=== PATIENT | female | born 1995 | race Caucasian/White ===

== ENCOUNTER 2017-03-04 15:09 | Emergency (ER) | payer OTHER, BC ==
[2017-03-04 15:31] VITALS: BP 110/76
--- NOTE | 2017-03-04 15:39 | EDM.PDOC ---
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 She was irrigating a bloody jack cath and the syringe slipped and she got it in the left eye. She rinsed out her eye and notified her supervisor [employer]. She is . Timing/Duration: Reports: Minutes: Location: left eye Quality: Reports: Other (Bloody urine her her left eye) Severity: moderate Improves with: Reports: None Worsens with: Reports: None Context: Reports: other (bloody urine) Associated Symptoms (Eye): Reports: decreased/blurred (blurry vison at first) - Related Data Allergies/ADRs: Allergies amoxicillin Allergy (Verified 05/03/16 10:14) Hives ceftriaxone sodium [From Rocephin] Allergy (Verified 05/03/16 10:14) Airway Tightness Home Meds: Ambulatory Orders Medication Instructions Recorded Confirmed [place]-3 Fatty Acids [Fish Oil] 1,200 mg PO DAILY 03/04/17 03/04/17 PNV95/Ferrous Fumarate/FA 1 tab PO DAILY 03/04/17 03/04/17 [ Tablet] Tobramycin 0.3% [Tobramycin 0.3% 5 ml EYELF Q4H #1 bottle 03/04/17 Ophth Mayra] Past Medical History - Past Surgical History HEENT Surgical History: Reports: Oral surgery GI Surgical History: Reports: Appendectomy Social & Family History - Tobacco Use Smoking Status *Q: Never Smoker - Caffeine Use Caffeine Use: Reports: None - Alcohol Use Days Per Week of Alcohol Use: 2 Number of Drinks Per Day: 5 Total Drinks Per Week: 10 - Recreational Drug Use Recreational Drug Use: No - Living Situation & Occupation Living situation: Reports: single Occupation: employed ED ROS GENERAL - Review of Systems Review Of Systems: See Below Constitutional: Reports: no symptoms HEENT: Reports: Other (Bloody urine in her eye) Respiratory: Reports: No Symptoms Cardiovascular: Reports: No symptoms Endocrine: Reports: no symptoms GI/Abdominal: Reports: No symptoms : Reports: no symptoms Musculoskeletal: Reports: no symptoms ED EXAM GENERAL W FULL EYE - Physical Exam Exam: See Below Exam Limited By: No limitations General Appearance: alert, no apparent distress Eye Exam: bilateral eye: EOMI, PERRL Course - Vital Signs Last Recorded V/S: Last Vital Signs Temp 98.0 F 03/04/17 15:28 Pulse 69 03/04/17 15:28 Resp 20 03/04/17 15:28 BP 110/76 03/04/17 15:28 Pulse Ox 100 03/04/17 15:28 - Orders/Labs/Meds Orders: Active Orders 24 hr Category Date Time Status HEPATITIS BE AB [REF] Stat Lab 03/04/17 15:23 Ordered HEPATITIS C ANTIBODY [CHEM] Stat Lab 03/04/17 15:22 Ordered HIV RAPID SCREEN [CHEM] Stat Lab 03/04/17 15:22 Ordered - Re-Assessments/Exams Free Text/Narrative Re-Assessment/Exam: 03/04/17 15:36 I will get a hepatitis C, hepatitis B and HIV. The source patient is also being drawn. I will give her some tobramicin drops. Departure - Departure Time of Disposition: 15:40 Disposition: Home, Self-Care 01 Condition: good Clinical Impression: Exposure to blood or body fluid Prescriptions: Tobramycin 0.3% [Tobramycin 0.3% Ophth Soln] 5 ml EYELF Q4H #1 bottle Referrals: Vandana Pendleton PA [Primary Care Provider] - Forms: ED Department Discharge Additional Instructions: Use the tombamycin drops 1 drop every 4 hours while awake for 1 week. We will notify you of the lab results. Please return if you are worse. - My Orders Last 24 Hours: My Active Orders 03/04/17 15:22 HEPATITIS C ANTIBODY [CHEM] Stat HIV RAPID SCREEN [CHEM] Stat 03/04/17 15:23 HEPATITIS BE AB [REF] Stat - Assessment/Plan Last 24 Hours: My Active Orders 03/04/17 15:22 HEPATITIS C ANTIBODY [CHEM] Stat HIV RAPID SCREEN [CHEM] Stat 03/04/17 15:23 HEPATITIS BE AB [REF] Stat
== END 2017-03-04 15:45 | disposition home or self-care (01) ==
LOC: JD.ED 15:09
DX: Z77.21 Contact with and (suspected) exposure to potentially hazardous body fluids (principal); Z88.1 Allergy status to other antibiotic agents; Z90.49 Acquired absence of other specified parts of digestive tract
CPT/HCPCS: 36415; 86707; 86803; 87449; 99283

== ENCOUNTER 2017-03-16 20:30 | Emergency (ER) | payer BC ==
[2017-03-16 20:52] VITALS: BP 133/83
--- NOTE | 2017-03-16 22:50 | EDM.PDOC ---
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 Patient is approximately 10 weeks . She is a . She states that she was at [employer] this evening. She states that she was running from second towards home plate when she slid into home plate. She states that she got a softball glove that contained a softball into her abdomen. She states that it knocked the wind out of her. She states that since then she has been having some abdominal pain and cramping. She is concerned about her . No vaginal bleeding. Reports some nausea but this has mostly resolved. Denies any dysuria, hematuria, or odor color, vomiting, vaginal bleeding. Patient reports that her blood type is A+. 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 Most recent visit was March 06. she had an early OB ultrasound March 03. No complications with her thus far. Lower Abdomen Pain Score (Numeric/FACES): 1 - Related Data Allergies Allergy/AdvReac Type Severity Reaction Status Date / Time amoxicillin Allergy Hives Verified 03/16/17 20:52 ceftriaxone sodium Allergy Airway Verified 03/16/17 20:52 [From Rocephin] Tightness Home Meds: Home Meds [place]-3 Fatty Acids [Fish Oil] 1,200 mg PO DAILY 03/04/17 [History] PNV95/Ferrous Fumarate/FA [ Tablet] 1 tab PO DAILY 03/04/17 [History] Past Medical History - Past Surgical History HEENT Surgical History: Reports: Oral Surgery GI Surgical History: Reports: Appendectomy Social & Family History - Tobacco Use Smoking Status *Q: Never Smoker - Caffeine Use Caffeine Use: Reports: Soda - Alcohol Use Days Per Week of Alcohol Use: 2 Number of Drinks Per Day: 5 Total Drinks Per Week: 10 - Recreational Drug Use Recreational Drug Use: No - Living Situation & Occupation Living situation: Reports: Single Occupation: Employed ED ROS GENERAL - Review of Systems Review Of Systems: See Below GI/Abdominal: Reports: Abdominal Pain (cramping), Nausea. Denies: Vomiting : Reports: No Symptoms, Other (no vaginal bleeding). Denies: Dysuria, Hematuria ED EXAM - Physical Exam Exam: See Below Exam Limited By: No Limitations General Appearance: Alert, WD/WN, No Apparent Distress Respiratory/Chest: No Respiratory Distress, Lungs Clear, Normal Breath Sounds Cardiovascular: Normal Peripheral Pulses, Regular Rate, Rhythm, No Murmur GI/Abdominal: Normal Bowel Sounds, Soft, Non-Tender (Female) Exam: Normal External Exam, Normal Speculum Exam. No: Cervical Dilatation, Products of Conception, Vaginal Bleeding Heart Tones: Present (on transvaginal ultrasound) Heart Tones per Min: 174 Neurological: Alert, Oriented, Normal Cognition Psychiatric: Normal Affect, Normal Mood Skin Exam: Warm, Dry Course - Vital Signs Last Recorded V/S: Last Vital Signs Temp 36.5 C 03/16/17 20:48 Pulse 90 03/16/17 20:48 Resp 16 03/16/17 20:48 BP 133/83 03/16/17 20:48 Pulse Ox 100 03/16/17 20:48 - Orders/Labs/Meds Orders: Active Orders 24 hr Category Date Time Status OB Transvaginal [US] Stat Exams 03/16/17 21:11 Ordered Labs: Laboratory Tests 03/16/17 Range/Units 21:15 Urine Color Yellow (Yellow) Urine Appearance Clear (Clear) Urine pH 6.0 (5.0-8.0) Ur Specific [place] 1.025 (1.005-1.030) Urine Protein Trace H (Negative) Urine Glucose (UA) Negative (Negative) Urine Ketones Negative (Negative) Urine Occult Blood Negative (Negative) Urine Nitrite Negative (Negative) Urine Bilirubin Negative (Negative) Urine Urobilinogen 0.2 (0.2-1.0) Ur Leukocyte Esterase Negative (Negative) Urine RBC 0-5 (0-5) /hpf Urine WBC 0-5 (0-5) /hpf Ur Epithelial Cells 0-5 (0-5) /hpf Urine Bacteria Few (FEW) /hpf Urine Mucus Moderate H (FEW) /hpf - Radiology Interpretation Free Text/Narrative:: Transvaginal ultrasound impression per Vrad: 9 weeks and 5 day living intrauterine with no evidence of complication. CT Results Date: 03/16/17 - Re-Assessments/Exams Free Text/Narrative Re-Assessment/Exam: 03/16/17 22:46 UA has trace protein. Negative for leuks, nitrites and bacteria. I reviewed the UA and ultrasound results with the patient. No concerns at this time. Discharge instructions as documented. Departure - Departure Time of Disposition: 22:51 Disposition: Home, Self-Care 01 Condition: good Clinical Impression: , Blunt abdominal trauma - Discharge Information Instructions: What Do I Need to Know About Injuries During ?, Easy-to- Read, Blunt Abdominal Trauma Referrals: Bakari Da Silva MD [Primary Care Provider] - Forms: ED Department Discharge Additional Instructions: [id number] Tylenol as needed for pain relief. Follow up with your OB provider as needed. Continue with your current plan of care. Please return to the ER should your symptoms change or worsen. - My Orders Last 24 Hours: My Active Orders 03/16/17 21:11 OB Transvaginal [US] Stat - Assessment/Plan Last 24 Hours: My Active Orders 03/16/17 21:11 OB Transvaginal [US] Stat
--- NOTE | 2017-03-17 09:36 | US ---
First trimester obstetrical ultrasound: Multiple real-time images were obtained transvaginally. Comparison: Previous study of 03/03/17 is available. Dates: LMP: LMP given as 01/08/17, [facility] 10/15/17, gestational age 9 weeks 4 days Current ultrasound: [facility] 10/14/17, gestational age 9 weeks 5 days Earlier ultrasound (03/03/17): [facility] 10/19/17, gestational age 9 weeks 0 days Single intrauterine gestation is seen. Amniotic fluid volume is normal. Yolk sac and embryo are identified. No subchorionic hemorrhage is seen. Maternal ovaries are seen which appear unremarkable. No free fluid is seen. Measurements: Gestational sac: 3.94 cm - 9 weeks 3 days [place]-rump length: 2.91 cm - 9 weeks 5 days Heart rate: 176 bpm Impression: 1. Single intrauterine gestation. Dates as noted above. 2. Nothing acute is seen on ultrasound exam. Diagnostic code #1 I agree with preliminary report issued by [facility] (preliminary report dictated on 03/16/17, 11:37 PM Central Time)
== END 2017-03-16 23:00 | disposition home or self-care (01) ==
LOC: JD.ED 20:30
DX: O9A.211 Injury, poisoning and certain other consequences of external causes complicating pregnancy, first trimester (principal); S39.91XA Unspecified injury of abdomen, initial encounter; Z88.1 Allergy status to other antibiotic agents; Z79.899 Other long term (current) drug therapy; Z90.49 Acquired absence of other specified parts of digestive tract; Z3A.10 10 weeks gestation of pregnancy; W21.07XA Struck by softball, initial encounter
CPT/HCPCS: 76817; 76817-26; 81001; 99283; 99284-25